=== PATIENT | male | born 1965 | race Caucasian/White ===

== ENCOUNTER 2021-01-19 16:22 | Inpatient (IN) | payer OTHER ==
[~2021-01-19] VITALS: Ht 167.6 cm; Wt 84.9 kg
[2021-01-19] MEDS ORDERED: CHILDREN'S ASPI81 M1 PO (17:38)
[2021-01-19] MEDS ORDERED: ZYRTEC10 M4 PO (17:41)
[2021-01-19] MEDS ORDERED: PREVACID30 MG PO (17:41)
--- NOTE | 2021-01-19 19:46 | NUR ---
PT DIRECT ADMIT FROM [facility] WITH CHEST PAIN. PT ASYMPTOMCATIC UPON ADMISSION. NSR ON TELE. PT ON HEPARIN GTT, APTT DRAWN UPON ARRIVAL. CARDIOLOGY AWARE OF PTS ARRIVAL. PT AFEBRILE, ADEQUATE UOP, NO BM, WOULD LIKE FOOD. PTS MEDICATIONS WERE SENT TO PHARMACY. PT UPDATED AND EDUCATED ON PT CONDITION AND POC. PT PROGRESSING TOWARDS POC.
[2021-01-19 19:50] VITALS: BP 134/79
[2021-01-20] MEDS ORDERED: LEVO-T50 MCG PO (00:16)
[2021-01-20] MEDS ORDERED: FENOFIBRATE160 MG PO (00:17)
[2021-01-20] MEDS ORDERED: VALACYCLOVIR1000 MG PO (00:17)
[2021-01-20] MEDS ORDERED: DIFLUCAN100 MG PO (00:18)
[2021-01-20] MEDS ORDERED: METOPROLOL SUCC50 MG PO (00:19)
[2021-01-20] MEDS ORDERED: PROAIR RESPICL90 MCG INH (00:28)
[2021-01-20 03:45] VITALS: BP 133/82
[2021-01-20 05:46] LABS: HEMATOCRIT 41.8 % (42.0-52.0); HEMOGLOBIN 14.3 gm/dL (14.0-18.0); MCH 34.7 pg (26.0-34.0); MCHC 34.3 g/dL (28.0-37.0); MCV 101.1 fL (80.0-100.0); RBC 4.14 mil/uL (4.50-6.00); RDW 13.5 % (10.5-14.5); WBC 5.5 thou/uL (4.0-11.0)
[2021-01-20 05:50] LABS: CREATININE 1.6 mg/dL (0.7-1.3); POTASSIUM 4.4 mmol/L (3.5-5.1)
[2021-01-20 05:57] LABS: TROPONIN-I 1.51 ng/mL (<0.06)
[2021-01-20 07:20] VITALS: BP 154/60
--- NOTE | 2021-01-20 07:54 | NUR ---
PATIENT ON HEPARIN GTT TITRATED PER PROTOCOL.DENIES ANY PAIN AND SOB.TROPONIN ELEVATED THIS MORNING AND DISTILLERY MANAGER INFORMED.PT DENIES CHEST PAIN.MONITOR SHOWS SINUS HELENA IN THE 45'S.POC CONTINUED.
--- NOTE | 2021-01-20 09:49 | NUR ---
55 year old male who admitted as a direct admit from [facility] with chest pain. Upon admission patient reported to asymptomatic. Patient reports chest pain the night prior to admission and a history of CAD and HTN. Patients plan discharge goal is to home. Cardiology to see this AM as patient remains on Heparin GTT but denies SOA and pain. Troponins elevated this AM and cardiology notified. Franc Garg at [phone] is listed as next of kin as Life Partner. Per Medical Record patient is employed and working. CM will follow for any discharge needs.
[2021-01-20 11:40] VITALS: BP 127/77
[2021-01-20 15:10] VITALS: BP 143/74
--- NOTE | 2021-01-20 15:38 | EKG ---
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: TIFFANIE : 1965 Requested By: Benita Lou Order Number: [id number] MD: Rafael Quintana Measurements Intervals [place] Rate: 51 P: 38 ND: 179 QRS: 25 QRSD: 88 T: 38 QT: 420 QTc: 387 Interpretive Statements Sinus rhythm Probable left atrial enlargement J Point elev, probable normal early repol pattern No previous ECG available for comparison Electronically Signed On 01-20-2021 15:38:12 CDT by Rafael Quintana [email or web address] <ELECTRONICALLY SIGNED> By: Rafael Quintana MD, [facility] 01/20/21 1538 1007 Jose Miguel Quintana MD, FACC /EPI
--- NOTE | 2021-01-20 16:12 | 2DMMODE ---
[facility] [address] [place] [address] 2 D/M-MODE ECHOCARDIOGRAM Name: JOSE DUMONT Room #: 210-P ADM IN M.R.#: [id number] Admission: 01/19/21 Attend Phys: Jamie Romero Discharge: Date of : 67 Report #: [id number] THIS REPORT FOR: cc: FAM - Family physician unknown FAM - Family physician unknown Jamie Romero MD ~ APPROVED REPORT Study performed: 01/20/2021 15:08:35 EXAM: Comprehensive 2D, Doppler, and color-flow Echocardiogram Patient Location: Bedside Room #: 210 Status: routine BSA: 1.92 HR: 49 bpm BP: 127/77 mmHg Rhythm: Bradycardia Other Information Study Quality: Good Indications Chest Pain Hypertension/HDD 2D Dimensions RVDd: 31.19 mm IVSd: 12.26 (7-11mm) LVOT Diam: 21.76 (18-24mm) LVDd: 46.34 mm PWd: 11.99 (7-11mm) Ascending Ao: 29.46 (22-36mm) LVDs: 29.77 (25-40mm) Left Atrium: 35.55 (27-40mm) Aortic Root: 32.56 mm Volumes Left Atrial Volume (Systole) Single Plane 4CH: 25.66 mL Single Plane 2CH: 57.07 mL LA ESV Index: 22.00 mL/m2 Aortic Valve AoV Peak Renzo.: 1.30 m/s AO Peak Gr.: 6.77 mmHg LVOT Max P.46 mmHg LVOT Max V: 1.17 m/s [facility] [address] [place] [address] 2 D/M-MODE ECHOCARDIOGRAM Name: JOSE DUMONT Room #: 210-P [facility]#: [id number] Admission: 01/19/21 Attend Phys: Jamie Grimes Discharge: Date of : 67 Report #: [id number] Vmax: 3.34 cm2 Mitral Valve E/A Ratio: 1.2 MV Decel. Time: 217.18 ms MV E Max Renzo.: 0.59 m/s MV A Renzo.: 0.48 m/s MV PHT: 62.98 ms IVRT: 115.34 ms Pulmonary Valve PV Peak Renzo.: 1.09 m/s PV Peak Gr.: 4.71 mmHg Pulmonary Vein P Vein S: 0.45 m/s P Vein A: 0.22 m/s P Vein D: 0.36 m/s P Vein A Dur.: 87.7 msec P Vein S/D Ratio: 1.25 Left Ventricle The left ventricle is normal size. There is normal LV segmental wall motion. There is normal left ventricular wall thickness. Left ventricular systolic function is normal. The left ventricular ejection fraction is within the normal range. LVEF is 55-60%. The left ventricular diastolic function is normal. Right Ventricle The right ventricle is normal size. The right ventricular systolic function is normal. Atria The left atrium size is normal. The right atrium size is normal. Aortic Valve The aortic valve is normal in structure. No aortic regurgitation is present. There is no aortic valvular stenosis. Mitral Valve The mitral valve is normal in structure. There is no mitral valve regurgitation noted. No evidence of mitral valve stenosis. Tricuspid Valve The tricuspid valve is normal in structure. There is no tricuspid valve regurgitation noted. Pulmonic Valve [address] [address] 2 D/M-MODE ECHOCARDIOGRAM Name: JOSE DUMONT Room #: 210-P [facility] IN .R.#: [id number] Admission: 01/19/21 Attend Phys: Jamie Grimes Discharge: Date of : 67 Report #: [id number] The pulmonary valve is normal in structure. There is no pulmonic valvular regurgitation. Great Vessels The aortic root is normal in size. The inferior vena cava is not well visualized. Pericardium There is no pericardial effusion. <Conclusion> The left ventricle is normal size. LVEF is 55-60%. The aortic valve is normal in structure. The mitral valve is normal in structure. The tricuspid valve is normal in structure. The pulmonary valve is normal in structure. There is no pericardial effusion. <ELECTRONICALLY SIGNED> By: Jamie Romero MD 01/20/211611 11 11 Jamie Romero MD /INF
--- NOTE | 2021-01-20 16:35 | NUR ---
Met with patient who admits as transfer from [facility] with chest pain. Patient to have cardiac cath in am. 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 Needs to return to work this week he has deadlines to meet. Patient independent with adls, has health insurance. PCP Dr Fitzpatrick. Anticipate dc home no needs. [facility] following
--- NOTE | 2021-01-20 16:35 | NUR ---
ASSESSMENT CHARTED. PT ALERT AND ORIENTED. SB/SR ON TELE. HEPARIN GTT INFUSING PER PROTOCAL. PLAN FOR CARDIAC CATH IN AM. DENIES HAVING CHEST PAIN OR DISCOMFORT. NO CONCERNS AT THIS TIME.
[2021-01-20 20:00] VITALS: BP 193/111
[2021-01-20 21:13] VITALS: BP 120/73
--- NOTE | 2021-01-21 00:34 | NUR ---
ASSESSMENT: PT REMAIN ALERT AND ORIENT TIMES FOUR. UP AD QIANA WITH STEADY GAIT. DENIES PAIN, SOB AND N/V. PT REQUEST THAT HIS GENVOYA BE AVAILABLE TO TAKE IN THE AM. VSS, SB PER MONITOR. NPO AT [place] FOR CATH IN THE AM PER DR. FARMER. HEPARIN TITRATED PER PROTOCOL. PT REFUSED TO TAKE ATORVASTATIN. STATES THAT HE DOES NOT TAKE ANY "STATINS" MEDICATIONS PER HIS POC DR. SALAZAR. PT OPT TO SIGN CONSENT FOR CATH IN THE PROP DRAWER. WILL CONTINUE TO MONITOR, SLOW PROGRESS TOWARDS DC GOALS.
[2021-01-21 03:09] LABS: ALBUMIN 3.5 g/dL (3.4-5.0); ANION GAP 9 mmol/L (7-16); BUN 19 mg/dL (7-18); CALCIUM 8.5 mg/dL (8.5-10.1); CHLORIDE 105 mmol/L (98-107); CHOLESTEROL 177 mg/dL (<200); CO2 28 mmol/L (21-32); CREATININE 1.7 mg/dL (0.7-1.3); GLUCOSE 108 mg/dL (74-106); HDL CHOLESTEROL 27 mg/dL (>40); POTASSIUM 4.3 mmol/L (3.5-5.1); SGOT 32 U/L (15-37); SGPT 36 U/L (30-65); SODIUM 142 mmol/L (136-145); TC:HDL 6.6 Ratio (Not establshd); TOTAL BILIRUBIN 0.3 mg/dL (0.2-1.0); TOTAL PROTEIN 6.8 g/dL (6.4-8.2); TRIGLYCERIDE 406 mg/dL (<150); VLDL 81 mg/dL (<40)
[2021-01-21 03:26] LABS: SERUM ASSESSMENT Moderate Lipemia
[2021-01-21 04:00] VITALS: BP 119/71
[2021-01-21 09:09] VITALS: BP 130/74
[2021-01-21 12:00] VITALS: BP 123/75
--- NOTE | 2021-01-21 12:55 | NUR ---
PT A&O X4, NO SIGNS OF DISTRESS NOTED AT THIS TIME. PT IS WAITING TO BE TAKEN FOR HEART CATH. PT IS FRUSTRATED AT THIS TIME STATES HE IS SICK OF WAITING AND HE HASNT BEEN ABLE TO EAT SINCE 0000. PT ASSURED THAT HE WILL GET HIS CATH DONE TODAY. THIS NURSE WENT OVER ALL CONCERNS PT HAD REGARDING PREVIOUS PROCEDURES. PT WANTS TO SIGN CONSENT FORM DOWN IN PRESENTATION MANAGER ONCE DR SPEAKS TO HIM. IV IN LFA WITH NS@ 126 AND HEPRIN GTT. CALL LIGHT IN REACH
--- NOTE | 2021-01-21 13:45 | NUR ---
PT TAKEN TO HIDE GRADER CARES TAKEN OVER BY TEMITOPE ARIZMENDI. PT STABLE AT THIS TIME NO QUESTIONS OR CONCERNS
[2021-01-21] MEDS ORDERED: LIPITOR40 MG PO (15:26)
[2021-01-21] MEDS ORDERED: METOPROLOL SUCC50 MG PO (15:28)
[2021-01-21] MEDS ORDERED: IMDUR 30 MG TAB30 M1 PO (15:28)
--- NOTE | 2021-01-21 15:57 | NUR ---
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 PT IS ALERT AND DENIES PAIN, GROIN SITE INTACT AND NO HEMATOMA NOTED. PT IS EATING AT THIS TIME WITH NO COMPLICATION. ALERT AND ORIENTED AND AT BASELINE.
[2021-01-21 17:56] VITALS: BP 135/93
--- NOTE | 2021-01-21 18:31 | NUR ---
PT OFF BED REST AT THIS TIME . RIGHT GROIN SIT C.D.I WITH NO SIGNS OF HEMATOMA. PT DENIES PAIN OR DISCOMFORT AND LAMMOGLIA ADDRESSED ALL PTS CONCERNS POST OP. PT IS CLEARED TO DISCHARGE TONIGHT. ON WAY. IV REMOVED CATH TIP INTACT
--- NOTE | 2021-01-29 23:05 | CATHLAB ---
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 The Right Groin^ was infiltrated with 1% Lidocaine subcutaneous anesthesia. A PINNACLE 4FR Sheath #[id number] sheath was inserted into the RFA^. Coronary angiography was performed using coronary diagnostic catheters. The right coronary system was accessed and visualized with a JR4 catheter. The left coronary system was accessed and visualized with a JL4 catheter. The left ventricle was accessed and visualized with a PIGTAIL catheter. Left ventricular/Aortic Valve gradient assessed via catheter pullback. Left ventriculogram was performed in 30 degree projection. Closure device was deployed with a Fr MYNXGRIP 6/7F #[id number]. The patient tolerated the procedure well and there were no complications associated with the procedure. There was no hematoma. The FFR measurement for the Mid-LAD was 0.95. The FFR measurement for the MId-CIRC was 0.97. Intraoperative Conscious Sedation Sedation start time: 13:59 Case end Time: [facility] [address] [place] [address] INVASIVE PROCEDURE REPORT Name: JOSE DUMONT Room #: 210-P [facility]#: [id number] Admission: 01/19/21 Attend Phys: Jamie Grimes Discharge: 01/21/21 Date of : 67 Report #: [id number] 14:58 Versed 3 mg Fluoro Time: 6.70 minutes Dose: DAP 9384.60 cGycm2 1345 mGy Contrast Type and Amount: Visipaque 70 ml Coronary Angiography The patient's coronary anatomy is right dominant. Diagnostic Cath Left Main Normal origin moderate size vessel bifurcates into left anterior descending and left circumflex coronary arteries. there is no significant flow limiting lesions LAD Moderate caliber type III vessel that courses in the anterior interventricular septum giving rise to septal and diagonal branches. At the origin of the first diagonal vessel there appears to be an eccentric lesion of the LAD proper. The vessel then continues towards the apex rapidly tapering and in the mid portion develops severe diffuse lesions with the vessel size under 1mm. Diagonal 1 small to moderate caliber vessel without high grade lesions but less than 50% Diagonal 2 diminuitive insignificant Circumflex small to moderate caliber proceeding in the AV groove giving rise to a bifurcating first marginal artery, afterwhich it continue as a small insignificant caliber vessel. OM1 moderate caliber with two early braches with proximal lesions of at least 75%. the superior branch arises at approximately 180 degrees. both branches appear to be 2-0mm or less and taper rapidly Right Coronary Large caliber dominant vessel which rapidly tapers as it proceeds posteriorly to crux of the heart givine rise to small PDA and terminating as a small diffusely diseased posterior wall branches and plvb R PDA small caliber vessel with moderate luminal irregularities IVUS Fractional Flow Jones was performed on the mid left anterior descending artery segment and the inferior branch of the first obtuse margiinal vessel. A JL4 Guide Catheter was used to engage the LAD ostium. Hemodynamics The aortic pressure is 142/82 mmHg with a mean of 94 mmHg. The left ventricular pressure is 119/18 mmHg with a mean of mmHg. The left [facility] [address] [place] [address] INVASIVE PROCEDURE REPORT Name: JOSE DUMONT Room #: 210-P [facility] IN M.R.#: [id number] Admission: 01/19/21 Attend Phys: Jamie Grimes Discharge: 01/21/21 Date of : 67 Report #: [id number] ventricular end diastolic pressure is 37 mmHg. Pullback from the left ventricle to the aorta revealed no gradient across the aortic valve. PCI Technique Lesion The lesion stenosis prior to intervention was mid left anterior descending artery segment and the inferior branch of the first obtuse margiinal% with MIKI JL4 flow. A LAD Guide Catheter was used to engage the ostium. Conclusion 1. Coronary Artery disease severe mid and distal LAD, moderate OM1 lesions 2. Abnormal hemodynamics with elevated LVEDP 3. IFR of Proximal LAD and OM1 where not significant Recommendations Cardiac Risk Reduction Program Aggressive Medical Therapy <ELECTRONICALLY SIGNED> By: Jamie Romero MD 01/29/215 04 04 Jamie Romero MD /INF
== END 2021-01-21 18:52 | disposition home or self-care (01) | DRG 280 ==
LOC: 2N 16:22
PROVIDERS: Internal Medicine Cardiovascular Disease; Nurse Practitioner; ADMIT Internal Medicine; ATTEND Internal Medicine
PROC: B211YZZ Fluoroscopy of Multiple Coronary Arteries using Other Contrast (ICD-10-PCS; principal; 2021-01-21)
PROC: 4A023N7 Measurement of Cardiac Sampling and Pressure, Left Heart, Percutaneous Approach (ICD-10-PCS; principal; 2021-01-21)
DX: I21.4 Non-ST elevation (NSTEMI) myocardial infarction (principal); N17.0 Acute kidney failure with tubular necrosis; I25.10 Atherosclerotic heart disease of native coronary artery without angina pectoris; E78.5 Hyperlipidemia, unspecified; F17.210 Nicotine dependence, cigarettes, uncomplicated; J30.2 Other seasonal allergic rhinitis; E03.9 Hypothyroidism, unspecified; I12.9 Hypertensive chronic kidney disease with stage 1 through stage 4 chronic kidney disease, or unspecified chronic kidney disease; N18.9 Chronic kidney disease, unspecified; B02.9 Zoster without complications; K21.9 Gastro-esophageal reflux disease without esophagitis; Z21 Asymptomatic human immunodeficiency virus [HIV] infection status; Z79.82 Long term (current) use of aspirin; Z79.899 Other long term (current) drug therapy
CPT/HCPCS: 10081

== ENCOUNTER → 2021-01-29 | Outpatient (CLI) | payer OTHER ==
[~2021-01-29] MED LIST: CHILDREN'S ASPI81 M1 PO; DIFLUCAN100 MG PO; FENOFIBRATE160 MG PO; IMDUR 30 MG TAB30 M1 PO; LEVO-T50 MCG PO; LIPITOR40 MG PO; METOPROLOL SUCC50 MG PO; PREVACID30 MG PO; PROAIR RESPICL90 MCG INH; VALACYCLOVIR1000 MG PO; ZYRTEC10 M4 PO
== END ==
LOC: SJCVCIMAG 15:48
PROVIDERS: ATTEND Internal Medicine
DX: R19.09 Other intra-abdominal and pelvic swelling, mass and lump (principal); R10.31 Right lower quadrant pain; L98.8 Other specified disorders of the skin and subcutaneous tissue; F17.200 Nicotine dependence, unspecified, uncomplicated; Z98.890 Other specified postprocedural states; Z79.82 Long term (current) use of aspirin; Z79.899 Other long term (current) drug therapy

== ENCOUNTER → 2021-05-21 | Outpatient (CLI) | payer OTHER | LOC: NUC 09:06 | PROVIDERS: ATTEND Specialist | DX: Z13.820 Encounter for screening for osteoporosis (principal); B20 Human immunodeficiency virus [HIV] disease ==